=== PATIENT | male | born 1975 | race Caucasian/White ===

== ENCOUNTER 2024-04-15 12:29 | Emergency (ER) | payer SELFPAY ==
[2024-04-15 12:33] VITALS: BP 206/76; PULSE 58; RESP 15; TEMP 36.4; O2SAT 98
--- NOTE | 2024-04-15 12:45 | DI.CT_ITS ---
Exam(s) CT FACIAL WO EXAM: CT FACIAL WO CLINICAL HISTORY: face injury. TECHNIQUE: Imaging Protocol: Axial computed tomography images with coronal and sagittal reformatted images were created and reviewed. No IV contrast COMPARISON: No exams were available for comparison FINDINGS: MAXILLOFACIAL CT SCAN: There is left supraorbital skin irregularity consistent with laceration. There is no radiopaque fore ign body. No evidence of orbital blowout fracture. There is, however, a right-sided nasal bone frac ture, age indeterminate. No left-sided nasal bone fracture evident. Nasal septum appears intact. N fely spine is intact. There is complete opacification of the right frontal sinus. No fracture at this level. There is pro minent mucosal thickening in the bilateral maxillary sinuses. Ostiomeatal units are patent bilateral ly. Sphenoid sinuses are patent. IMPRESSION: Left supraorbital regions skin laceration. No radiopaque foreign body. No subjacent fracture the le ft orbit-left frontal sinus.. There is a fracture of the right side nasal bone, age indeterminate. There is mucosal disease in the bilateral maxillary sinuses as well as in the right frontal sinus. RADIATION DOSE DELIVERED: 482.13mGy.cm Total DLP DATA REPOSITORY: All CT scans at this facility are submitted to the National Radiology Data Registry (NRDR) Dose Index Registry (DIR) with the [employer] ([employer]). RADIATION OPTIMIZATION: All CT scans at this facility use at least one of these dose optimization te chniques: automated exposure control; mA and/or kV adjustment per patient size (includes targeted exa ms where dose is matched to clinical indication); or iterative reconstruction.
[2024-04-15] MEDS: Lidocaine/Epinephri/Tetracaine Topical Gel 3 ML (13:56)
--- NOTE | 2024-04-15 14:34 | ED.GENADUL_ITS ---
Discharge Plan Disposition Patient Disposition: Home Discharge Details Clinical Impression: Complex laceration of face, Contact with chainsaw as cause of accidental injury Primary Care Provider: None,None ED Provider: Ryland Gao Home Meds and New Rx's Prescriptions: No Action No Known Home Meds Discharge Instructions Instructions: Laceration Repair With Stitches ED Additional Instructions: Keep wound clean with soap and water. Pat dry. Keep dry. You do not have to keep covered Stitches will need to be removed in 7 days. You have 13 stitches on the outside that will need to be removed The Steri-Strips will fall off on their own. You may notice some bruising develop that may settle in around your eye and this is normal Return with worsening swelling redness or other concerns for infection HPI General Date/Time Provider Initiated Documentation: 04/15/24 12:58 . Limitations to Documentation: no limitations . Information obtained by: patient . HPI Narrative: 49-year-old gentleman with out significant past medical history presents for evaluation of facial injury. Patient reports that he was using a chainsaw and it kicked back and struck him in the left side of his face. He was wearing a protective helmet with face shield. He states that he did not have loss of consciousness. He reports immediate onset of bleeding from over the left eye. He has unknown tetanus shot, but declines update today. Related Data Home Medications ?Medication ?Instructions ?Recorded ?Confirmed Unknown [No Known Home Meds] 04/15/24 04/15/24 Allergies Allergy/AdvReac Type Severity Reaction Status Date / Time No Known Allergies Allergy Unverified 04/15/24 12:38 General Stated Complaint: Laceration JASPREET: 4 Exam Narrative Exam Narrative: Review of Systems: All systems reviewed & are unremarkable except as noted in HPI and below Well-developed, no acute distress 3 Large irregular lacerations over the left eyebrow, no foreign body Orbital ridge feels intact without depression Extraocular movements intact very small abrasion over the tip of the nose Course Vital Signs Vital signs: Vital Signs Temperature 36.4 C 04/15/24 12:33 Pulse 58 L 04/15/24 12:33 Respiratory Rate 15 04/15/24 12:33 Blood Pressure 206/76 H 04/15/24 12:33 Pulse Oximetry 98 04/15/24 12:33 Temperature 36.4 C 04/15/24 12:33 Pulse 58 L 04/15/24 12:33 Respiratory Rate 15 04/15/24 12:33 Respiratory Effort Normal 04/15/24 12:39 Blood Pressure 206/76 H 04/15/24 12:33 Blood Pressure Position Sitting 04/15/24 12:33 Pulse Oximetry 98 04/15/24 12:33 Oxygen Delivery Method Room Air 04/15/24 12:33 Oxygen Flow Rate 0 04/15/24 12:33 Procedures Laceration Laceration 1: Site: face Side (If applicable): left (left eyebrow ) Size (cm): 4 Description: linear and irregular Depth: involves muscle layer Local anesthetic: Lidocaine 1% and LET(lidocaine epinephrine tetracaine) Amount of anesthesia used (mL): 5 Pre-repair: wound explored, irrigated extensively, deep structures intact and wound margins revised Skin layer closed with: other (prolene) Size (cm): 5-0 Number of sutures: 10 Technique: simple, interrupted Subcutaneous layer closed with: chromic gut Size: 5-0 Number of sutures: 2 Technique: simple, interrupted Laceration 2: Site: face Side (If applicable): left Size (cm): 1.5 Description: other (c shaped) Depth: simple, single layer Pre-repair: wound explored, irrigated extensively and deep structures intact Skin layer closed with: other (prolene) Size (cm): 5-0 Number of sutures: 3 Technique: simple, interrupted Laceration 3: Site: face Side (If applicable): left Size (cm): 3 Description: linear Depth: simple, single layer Pre-repair: wound explored, irrigated extensively and deep structures intact Skin layer closed with: other (steri strips) Medical Decision Making Emergent evaluation of facial trauma. Patient does not want tetanus update today. Concerning mechanism with a chainsaw kicked back though he was wearing protective helmet. I have a low suspicion for facial fracture but given the mechanism, a CT of his face was ordered to evaluate for this. Laceration was extensively irrigated and repaired without complication. CT of the head radiology report was reviewed and there is no acute fracture. Wound care discussion had with patient. Return precautions advised. Patient should have sutures removed in 7 days. Quality:SDOH Health Related Social Needs: No Data to Display PFSH All Active Problems (Updated 04/15/24 @ 14:46 by Ryland Gao MD) Contact with chainsaw as cause of accidental injury (Acute) Complex laceration of face (Acute) Social History Smoking risk assessment performed?: No
--- NOTE | 2024-04-15 14:44 | DI.VRAD_ITS ---
PROCEDURE INFORMATION: Exam: CT Maxillofacial Without Contrast Exam date and time: 04/15/2024 1:20 PM Age: 49 years old Clinical indication: Injury or trauma; Other: Chain saw kicked back. . Abrasion above right eye; Laceration; Forehead; Without residual foreign body TECHNIQUE: Imaging protocol: Computed tomography of the face without contrast. COMPARISON: No relevant prior studies available. FINDINGS: Paranasal sinuses: Opacification of the right frontal sinus. Partial opacification of the maxillary sinuses bilaterally. Orbital cavities: Globes intact. No retrobulbar hematoma. Bones: No acute fracture. Soft tissues: Laceration within the left supraorbital soft tissues. No radiopaque foreign body. IMPRESSION: Laceration within the left supraorbital soft tissues. No radiopaque foreign body. Dictated and Authenticated by: Nirali Elizabeth MD. Ordering:GRACIE Sheffield MD
[2024-04-15 14:55] VITALS: BP 170/97; PULSE 80; RESP 18; TEMP 36.8; O2SAT 98
== END 2024-04-15 15:04 | disposition home or self-care (01) ==
PROVIDERS: Emergency Provider Emergency Medicine
DX: S01.112A Laceration without foreign body of left eyelid and periocular area, initial encounter (principal); W31.2XXA Contact with powered woodworking and forming machines, initial encounter
CPT/HCPCS: 12014; 99284; 70486